=== PATIENT | female | born 1970 | race Two or more races ===

== ENCOUNTER 2020-08-16 11:21 | Outpatient (CLI) | payer OTHER | END 2020-08-16 11:40 | disposition home or self-care (01) | LOC: SONOGRAMA 11:21 | PROVIDERS: ATTEND Surgery | DX: D24.2 Benign neoplasm of left breast (principal); N60.12 Diffuse cystic mastopathy of left breast; N60.11 Diffuse cystic mastopathy of right breast ==

== ENCOUNTER 2020-09-06 06:41 | Day surgery (SDC) | payer OTHER | END 2020-09-06 15:00 | disposition home or self-care (01) | LOC: CIR.AMB 06:41 | PROVIDERS: ATTEND Surgery | DX: D24.2 Benign neoplasm of left breast (principal); Z20.822 Contact with and (suspected) exposure to COVID-19 ==